=== PATIENT | female | born 1975 | race Caucasian/White ===

== ENCOUNTER → 2020-09-20 07:52 | Outpatient (CLI) | payer OTHER, SELFPAY ==
--- NOTE | ~2020-09-20 | MMUS_ITS ---
EXAMINATION: MM diagnostic naz BI w ivon, US breast BI complete HISTORY: Left breast pain. TECHNIQUE: Additional 3-D tomosynthesis images of the breasts were performed and synthetic 2-D images were generated. CAD analysis was submitted and interpreted. High resolution bilateral breast ultraso und was performed. COMPARISON: None BREAST PARENCHYMAL COMPOSITION: Breast composed of scattered areas of fibroglandular density. FINDINGS: MAMMOGRAPHIC FINDINGS: Breast composed of scattered areas of fibroglandular density. There are no discrete masses, sfdc architect ural distortion or suspicious calcifications in either breast. ULTRASOUND: Right breast ultrasound: At 12:00, 6 cm from the nipple, there is a 3 mm cyst. At 1:00, 6 cm from the nipple there is a 8 mm cyst. At 9:00 near the areola there is a 6 mm cyst. Left breast ultrasound: At 4:00, 7 cm from the nipple there is a 5 mm cyst. At 12:00 near the areola there is an 8 mm cyst. No suspicious masses in either breast to suggest malignancy. IMPRESSION: 1. No evidence for malignancy in either breast. 2. Routine yearly screening mammogram and regular clinical breast examination are recommended. BI-RADS Category 2: Benign finding(s). Reviewed, dictated and finalized at location A. NISTRATIVE VOLUNTEER IMPRESSION: 1. No evidence for malignancy in either breast. 2. Routine yearly screening mammogram and regular clinical breast examination a re recommended. BI-RADS Category 2: Benign finding(s).
== END ==
PROVIDERS: PCP Registered Nurse; Visit Provider Registered Nurse
DX: R59.0 Localized enlarged lymph nodes (principal); N64.4 Mastodynia
CPT/HCPCS: 76641; 77062; 77066; G0279

== ENCOUNTER 2021-02-15 01:03 | Emergency (ER) | payer OTHER, SELFPAY ==
[2021-02-15 01:06] VITALS: BP 145/94; PULSE 84; RESP 14; TEMP 36.3; O2SAT 98
--- NOTE | 2021-02-15 01:22 | ED.GENADULT ---
HPI - General Adult General Chief complaint: Ear Stated complaint: earache Time Seen by Provider: 02/15/21 01:13 Source: patient History of Present Illness HPI narrative: Patient is a 45 y/o female complaining of left ear pain starting 3:00 PM yesterday. She rates her pain as 7/10. She took Tylenol and Nyquil which did not help. She has no fever, chills, cough or sorethroat. Related Data Allergies Allergy/AdvReac Type Severity Reaction Status Date / Time erythromycin base Allergy Unknown Hives Verified 02/15/21 01:09 Review of Systems Constitutional: Constitutional: Denies chills, Denies fever(s), Denies headache(s) and Denies weakness Eyes: Eyes: Denies blurry vision ENT: Reports otalgia, Denies headache(s) and Denies neck pain Cardiovascular: Cardiovascular: Denies chest pain and Denies dyspnea Respiratory: Respiratory: Denies cough and Denies dyspnea Gastrointestinal: Gastrointestinal: Denies abdominal pain, Denies diarrhea, Denies nausea and Denies vomiting Genitourinary: Genitourinary: Denies hematuria and Denies dysuria Musculoskeletal: Musculoskeletal: Denies back pain and Denies neck pain Neurologic: Denies headache(s) and Denies weakness [facility] Family History Family History Mother Family history of chronic obstructive pulmonary disease Other Family history of Alzheimer's disease Social History Social History Smoking status: Current every day smoker Alcohol intake: current Gender identity (if verbalized by the patient): Female Exam Const: General: no acute distress and well developed HENMT: Head: normocephalic Ears: external ears normal and left TM abnormal (erythema) General nose exam: Normal external nose present Eyes: General: appearance normal, both eyes and all related structures Conjunctivae: conjunctivae normal Chest: Chest palpation & inspection: tenderness Resp: Effort & Inspection: normal respiratory effort Neuro: General: oriented to person, oriented to place, oriented to time and patient oriented x3 Extrem: General: normal to inspection, full ROM and no pedal edema Psych: Appearance: grossly normal Mental Status: mental status grossly normal Affect: normal affect Course Vital Signs Vital signs: Vital Signs Temperature 36.3 C L 02/15/21 01:06 Pulse Rate 84 02/15/21 01:06 Respiratory Rate 14 02/15/21 01:06 Blood Pressure 145/94 H 02/15/21 01:06 Pulse Oximetry 98 02/15/21 01:06 Temperature 36.2 C L 02/15/21 02:04 Pulse Rate 78 02/15/21 02:04 Respiratory Rate 16 02/15/21 02:04 Blood Pressure 138/82 02/15/21 02:04 Pulse Oximetry 98 02/15/21 02:04 Medical Decision Making Vital Signs Vital Signs: Vital Signs Temperature 36.3 C L 02/15/21 01:06 Pulse Rate 84 02/15/21 01:06 Respiratory Rate 14 02/15/21 01:06 Blood Pressure 145/94 H 02/15/21 01:06 Pulse Oximetry 98 02/15/21 01:06 Temperature 36.2 C L 02/15/21 02:04 Pulse Rate 78 02/15/21 02:04 Respiratory Rate 16 02/15/21 02:04 Blood Pressure 138/82 02/15/21 02:04 Pulse Oximetry 98 02/15/21 02:04 Discharge Plan Discharge Clinical Impression: Left otitis media Qualifiers: Otitis media type: unspecified Qualified Code(s): H66.92 - Otitis media, unspecified, left ear Patient Disposition: Home, Self-Care Condition: Stable Instructions: Antibiotic Form, Ear Infection (GEN) Prescriptions: New amoxicillin 500 mg tablet 500 mg PO TID 10 Days Qty: 30 RF: 0 Follow-up/Referrals: Adali,RAMIREZ Stone [Primary Care Provider] -
[2021-02-15 02:04] VITALS: BP 138/82; PULSE 78; RESP 16; TEMP 36.2; O2SAT 98
== END 2021-02-15 02:05 | disposition home or self-care (01) ==
PROVIDERS: Emergency Provider Emergency Medicine; PCP Registered Nurse
DX: H66.92 Otitis media, unspecified, left ear (principal); F17.200 Nicotine dependence, unspecified, uncomplicated
CPT/HCPCS: 99283

== ENCOUNTER 2022-08-01 11:12 | Emergency (ER) | payer OTHER, SELFPAY ==
--- NOTE | 2022-08-01 11:20 | ED.BACK ---
HPI - Back Pain/Injury General Chief Complaint: Urogenital-Female Stated Complaint: Back Pain Time Seen by Provider: 08/01/22 11:50 Source: patient Mode of arrival: ambulatory Limitations: no limitations History of Present Illness HPI Narrative: Ms. Torres is a 47-year-old female patient presenting to clinic today with complaints of low back pain since last night. She reports no known injury. She reports pain is across the entire low back but more so on the right side. She denies any radiation of pain into her legs or into her groin. No history of kidney stones. She denies any vaginal discharge or urinary symptoms. She denies any fever or chills. Does not feel as though she is having back spasms but pain is sharp and aching and comes in waves. Related Data Home Medications Medication Instructions Recorded Confirmed bupropion HCl 150 mg 24 hr tablet, 150 mg PO BID 04/01/21 10/05/21 extended release cyclobenzaprine 10 mg tablet 10 mg PO TID 04/01/21 10/05/21 pantoprazole 40 mg tablet,delayed 40 mg PO DAILY 04/01/21 10/05/21 release pregabalin 150 mg capsule 150 mg PO BID 04/01/21 10/05/21 tramadol 50 mg tablet 50 mg PO Q8H PRN 04/01/21 10/05/21 hydroxychloroquine 200 mg tablet 200 mg PO BID 08/01/22 08/01/22 lisinopril 10 mg tablet 10 mg DAILY 08/01/22 08/01/22 Allergies Allergy/AdvReac Type Severity Reaction Status Date / Time erythromycin base Allergy Unknown Hives Verified 08/01/22 11:52 Review of Systems Review of Systems: Pertinent positives per HPI. Patient denies any fever, chills, rash, headache, visual changes, dizziness, cough, runny nose, sore throat, shortness of breath, chest pain, palpitations, nausea, vomiting, diarrhea, constipation, abdominal pain, or any urinary issues. [facility] Past Medical History Medical History Abrasion of back Family History Family History Mother Family history of chronic obstructive pulmonary disease Other Family history of Alzheimer's disease Social History Social History Smoking packs per day: 0.5 Smoking cigarettes per day: 10.0 Smoking status: Current every day smoker Alcohol intake: current Gender identity (if verbalized by the patient): Female Comments At the time of my signature, I reviewed and agree with the nursing past medical, surgical, social, and family history. There is no relevant family history pertinent to the patient complaint. Exam Narrative: General: Well-developed, well nourished, in no apparent distress Head: Normocephalic, atraumatic. Cardio: Regular rate and rhythm, s1 and s2 normal, no murmur appreciated. Resp: Clear to auscultation bilaterally, no rhonchi, rales, wheezing or rubs. Musculoskeletal: No deformity, tender to palpation with light palpation across low back, grossly normal range of motion, patellar reflexes 2+, straight leg test negative, muscle strength strong and equal, peripheral pulse strong, no edema, no cyanosis, normal gait and station Course Course Emergency Course: Portions of this record may have been created with voice recognition software. Level of Care: Express Care Visit Vital Signs Vital signs: Vital Signs Temperature 36.4 C L 08/01/22 11:37 Pulse Rate 97 08/01/22 11:37 Respiratory Rate 18 08/01/22 11:37 Blood Pressure 96/50 L 08/01/22 11:37 Pulse Oximetry 100 08/01/22 11:37 Oxygen Delivery Room Air 08/01/22 11:37 Temperature 36.4 C L 08/01/22 11:37 Pulse Rate 97 08/01/22 11:37 Respiratory Rate 18 08/01/22 11:37 Blood Pressure 96/50 L 08/01/22 11:37 Pulse Oximetry 100 08/01/22 11:37 Oxygen Delivery Room Air 08/01/22 11:37 Vital signs reviewed Transfer Transfered to: [place] Transportation: Other ( private car) Transfer rationale: low back pain with
[2022-08-01 11:37] VITALS: BP 96/50; PULSE 97; RESP 18; TEMP 36.4; O2SAT 100
== END 2022-08-01 12:47 | disposition short-term general hospital (02) ==
PROVIDERS: Emergency Provider Nurse Practitioner Family; PCP Registered Nurse
DX: M54.50 Low back pain, unspecified (principal); R31.29 Other microscopic hematuria; F17.210 Nicotine dependence, cigarettes, uncomplicated
CPT/HCPCS: 81003; 99211; 99212; G0463

== ENCOUNTER 2022-08-01 13:04 | Observation (INO) | payer OTHER, SELFPAY ==
--- NOTE | ~2022-08-01 | XR_ITS ---
XR chest 2V DATE: 08/01/2022 17:55 INDICATION: Abnormal lung sounds. History of hypertension. Smoker. TECHNIQUE: PA and lateral views COMPARISON: None FINDINGS: Normal heart size. No hilar or mediastinal enlargement. No pulmonary infiltrate or consolid ation, pleural effusion or pulmonary vascular congestion or pneumothorax. Included skeletal structure s are unremarkable other than mild thoracic levoscoliosis. IMPRESSION: No active cardiopulmonary disease Reviewed, dictated and finalized at location A. RING INSPECTOR
--- NOTE | ~2022-08-01 | US_ITS ---
EXAMINATION: US renal BI DATE: 08/01/2022 23:52 INDICATION: Acute kidney injury. TECHNIQUE: Multiple ultrasound grayscale images of the kidneys were obtained. COMPARISON: CT abdomen and pelvis 08/01/2022 FINDINGS: The right kidney measures 11.6 x 6.0 x 6.0 cm. The left kidney measures 12.4 x 6.3 x 6.7 cm. The kidn eys demonstrate normal parenchymal echogenicity. There is no hydronephrosis. The bladder is normal. IMPRESSION: 1. Normal kidneys. No hydronephrosis. Reviewed, dictated and finalized at location A. [facility]
--- NOTE | ~2022-08-01 | CT_ITS ---
EXAMINATION: CT abdomen pelvis wo con DATE: 08/01/2022 17:47 INDICATION: Right flank pain. Leukocytosis. TECHNIQUE: Computed tomography (CT) of the abdomen and pelvis was performed without intravenous contr ast. Automated exposure control and iterative reconstruction technique were employed. Exam dose: 137 3.66 mGy-cm total exam DLP. COMPARISON: None FINDINGS: The lung bases are clear of infiltrate or consolidation. Normal heart size. No pericardial or pleural effusion. The liver, gallbladder, bile ducts, spleen are unremarkable. No pancreatic mass lesion or calculus or ductal dilatation. There is fat stranding adjacent to the upper pole the left kidney and to a lesser extent adjacent to the remainder of each kidney. There is stranding around the right ureter. The findings suggest pyelon ephritis.. No renal mass lesion or urinary tract calculus or hydroureteronephrosis. The urinary bladder, uterus and adnexal areas are unremarkable. Normal caliber of the abdominal aorta. No intraperitoneal or retroperitoneal or pelvic mass lesion or adenopathy or ascites. Normal appendix. No bowel obstruction or bowel wall thickening, pneumatosis or intraperitoneal free a ir. Normal morphology of the adrenal glands. Small fat-containing umbilical hernia. No suspicious osteolytic or osteoblastic lesions are noted. IMPRESSION: Stranding around the kidneys and right ureter suggesting pyelonephritis Normal appendix Reviewed, dictated and finalized at Location A. Reviewed, dictated and finalized at location A. R PLANT OPERATOR IMPRESSION: Stranding around the kidneys and right ureter suggesting pyeloneph ritis Normal appendix
[2022-08-01 13:06] VITALS: BP 129/79; PULSE 100; RESP 18; TEMP 36.3; O2SAT 100
[2022-08-01 13:28] LABS: Basophils Absolute Auto 0.1 K/mm3 (0.0-0.1); Basophils Percent Auto 0.5 % (0.2-1.2); Eosinophils Absolute Auto 0.1 K/mm3 (0-0.3); Eosinophils Percent Auto 0.6 % (0-4.4); Hemoglobin 14.4 g/dL (12.0-15.0); Immature Granulocyte Absolute 0.14 K/mm3 (0.00-0.031); Immature Granulocyte Percent A 0.7 % (0-0.5); Lymphocytes Absolute Auto 2.08 K/mm3 (0.9-3.2); Lymphocytes Percent Auto 10.3 % (18.3-44.2); Mean Corpuscular HGB Conc 34.3 g/dl (32-36); Mean Corpuscular Hemoglobin 31.6 pg (26-34); Mean Corpuscular Volume 92.3 fl (80-100); Mean Platelet Volume 12.1 fl (7.4-10.4); Monocytes Absolute Auto 2.3 K/mm3 (0.1-0.6); Monocytes Percent Auto 11.5 % (2.6-8.5); Neutrophils Absolute Auto 15.3 K/mm3 (1.3-6.7); Neutrophils Percent Auto 76.4 % (45.5-73.1); Platelet Count Result 219 k/mm3 (150-375); Red Blood Count 4.55 M/mm3 (4.2-5.4); Red Cell Distribution Width 12.4 % (11.5-14.5); White Blood Count 20.1 K/mm3 (4.5-10.0)
[2022-08-01 13:39] LABS: Alanine Aminotransferase 33 U/L (6-35); Albumin Level 4.5 g/dL (3.5-5.1); Alkaline Phosphatase 95 U/L (38-126); Anion Gap 9 mmol/L (8-16); Aspartate Amino Transferase 31 U/L (14-36); Bilirubin,Total 0.6 mg/dL (0.2-1.3); Blood Urea Nitrogen 18 mg/dL (7-17); Calcium 9.3 mg/dL (8.4-10.2); Carbon Dioxide 25 mmol/L (22-30); Chloride 99 mmol/L (98-107); Estimated CRCL calculation 39 ml/min; Estimated Glomerular Filt Rate 24; Glucose 99 mg/dL (65-110); Potassium 4.6 mmol/L (3.4-5.0); Sodium 133 mmol/L (137-145)
[2022-08-01 14:29] LABS: Appearance Urine Slightly Cloudy (Clear); Bilirubin Urine Negative (Negative); Blood Urine Negative (Negative); Color Urine Light Yellow (Yellow); Glucose Urine UA Negative (Negative); Ketones Urine Negative (Negative); Leukocyte Esterase Ur Negative LEU/UL (Negative); Nitrate Urine Negative (Negative); Protein Urine Negative (Negative); Specific Grav Ur <= 1.005 (1.001-1.035); Urobilinogen Urine 0.2 mg/dL (<2.0); pH Urine 5.5 (5.0-9.0)
[2022-08-01 14:37] LABS: Bacteria Urine 2+ /hpf; Mucus Urine Rare /lpf; RBC Urine 0-2 /hpf (0-2); Squamous Epithelial Cell Urine Few /hpf (Few); WBC Urine 0-3 /hpf
[2022-08-01 14:41] LABS: Add Urine Microscopic? YES
[2022-08-01] MEDS: SODIUM CHLORIDE 0.9% IV 1,000 ML 999 ML IV CONT ×2 (17:21→19:43)
[2022-08-01] MEDS: ONDANSETRON INJ 4 MG/2 ML VIAL IV PUSH (17:23)
--- NOTE | 2022-08-01 17:33 | ED.BACK ---
HPI - Back Pain/Injury General Chief Complaint: Back Pain/Injury <Dhara Vu PA-C - Last Filed: 08/02/22 02:09> Stated Complaint: r/o kidney stone <BENNIE Lao Last Filed: 08/02/22 02:09> Time Seen by Provider: 08/01/22 17:01 <BENNIE Lao Last Filed: 08/02/22 02:09> Source: patient <BENNIE Lao Last Filed: 08/02/22 02:09> Mode of arrival: ambulatory <BENNIE Lao Last Filed: 08/02/22 02:09> Limitations: no limitations <BENNIE Lao Last Filed: 08/02/22 02:09> History of Present Illness HPI Narrative: Patient is a 47-year-old female who presents the ED with report of right lower back/right flank pain. Patient reports she developed pain in her lower back, bilateral flank regions, radiating around to lower abdomen last night around 7:15 PM. She took Tylenol last night and this morning with minimal relief. Pain does seem to be worse on right side. Worse with laying flat or walking around. She has had some nausea and decreased appetite, but denies fever, vomiting, diarrhea, constipation, rectal bleeding, dysuria, hematuria, cough, cold symptoms. Patient has never had pain like this before. <BENNIE Lao Last Filed: 08/02/22 02:09> Related Data Home Medications: Home Medications Medication Instructions Recorded Confirmed bupropion HCl 150 mg 24 hr tablet, 150 mg PO BID 04/01/21 08/01/22 extended release cyclobenzaprine 10 mg tablet 10 mg PO TID PRN Spasms 04/01/21 08/01/22 pantoprazole 40 mg tablet,delayed 40 mg PO QAM 04/01/21 08/01/22 release pregabalin 150 mg capsule 150 mg PO BID 04/01/21 08/01/22 tramadol 50 mg tablet 50 mg PO Q6-8H PRN pain 04/01/21 08/01/22 hydroxychloroquine 200 mg tablet 200 mg PO BID 08/01/22 08/01/22 meloxicam 15 mg tablet 15 mg PO QHS 08/01/22 08/01/22 <Dhara Vu PA-C - Last Filed: 08/02/22 02:09> Allergies/Adverse Reactions: Allergies Allergy/AdvReac Type Severity Reaction Status Date / Time erythromycin base Allergy Unknown Hives Verified 08/01/22 11:52 <Dhara Vu PA-C - Last Filed: 08/02/22 02:09> Review of Systems Review of Systems: CONSTITUTIONAL: Denies fever, chills, or sweats. ENT: Denies rhinorrhea, congestion, sore throat. CARDIOVASCULAR: Denies chest pain. RESPIRATORY: Denies cough or dyspnea. GASTROINTESTINAL: Reports lower ABD pain, nausea. Denies constipation, rectal bleeding, vomiting, or diarrhea. GENITOURINARY: Denies dysuria or hematuria. MUSCULOSKELETAL: Reports bilateral lower back/flank pain. <Dhara Vu PA-C - Last Filed: 08/02/22 02:09> All systems reviewed & are unremarkable except as noted in HPI and below <Dhara Vu PA-C - Last Filed: 08/02/22 02:09> [facility] Past Medical History Medical History: Medical History Chronic back pain Chronic GERD Hypertension Obstructive sleep apnea on CPAP Rheumatoid arthritis <Dhara Vu PA-C - Last Filed: 08/02/22 02:09> Surgical History Surgical History: Surgical History No history of previous surgery <Dhara Vu PA-C - Last Filed: 08/02/22 02:09> Family History Family History: Family History Mother Family history of chronic obstructive pulmonary disease Other Family history of Alzheimer's disease <Dhara Vu PA-C - Last Filed: 08/02/22 02:09> Social History Social History: Social History Social History: Surrogate medical decision maker: Dana Juarez, spouse. Code status: Full code. Smoking packs per day: 1 Smoking cigarettes per day: 20.0 Smoking status: Current every day smoker Alcohol intake: rhett
[2022-08-01 18:24] LABS: Lactic Acid Reflex 0.8 mmol/L (0.7-2.0)
--- NOTE | 2022-08-01 19:00 | PM.IMHP ---
H&P: HPI History of Present Illness Date/Time: 08/01/22 19:00 Chief Complaint: Back and side pain. Narrative: This is a pleasant 47-year-old female with rheumatoid arthritis, GERD, sleep apnea, recent diagnosis of hypertension, and chronic low back pain who presented to the emergency department for evaluation of right low back and flank pain. Last evening she developed a throbbing and occasionally sharp pain in her lower back, more so on the right side, radiating into the right flank. She took some Tylenol last night and again this morning without a whole lot of relief. The pain is not all similar to that which she experiences with her chronic low back pain and she has not noticed any significant aggravating or alleviating factors. Additionally she also reports chills and a bit of nausea. She was afebrile on arrival to emergency department with a blood pressure of 96/50 which has improved with IV fluids. Workup was significant for white blood cell count of 20.1, sodium 133, BUN 18, and a creatinine 2.20. Urinalysis was negative for nitrate, leukocyte esterase, and increased numbers of white blood cells but did show 2+ bacteria. CT of the abdomen and pelvis showed stranding around the kidneys and right ureter suggesting pyelonephritis and she is being admitted in this setting for IV antibiotics. She has no history of urinary tract infections and she has not had any urinary symptoms, specifically denying urinary hesitancy, urgency, incontinence, and dysuria. Regarding her renal function, she had a normal creatinine according to her [facility] my chart within the last month or so. She has no known history of kidney disease but she does report being started on lisinopril 10 milligrams daily several weeks ago for high blood pressure. She has not noticed a decrease in urine output. Review of Systems Review of Systems: Twelve systems were reviewed. No syncope or near syncope. She has had chills but no documented fever. No cold or flu symptoms. She has had some nausea but no vomiting. No chest pain or shortness of breath. Last menstrual period was approximately 3 weeks ago. Except as documented, all other systems were reviewed and are negative. [facility] Past Medical History Medical History (Updated 08/01/22 @ 22:50 by Michelle Monique PA-C) Chronic back pain Chronic GERD Hypertension Obstructive sleep apnea on CPAP Rheumatoid arthritis Surgical History Surgical History (Updated 08/01/22 @ 22:51 by Michelle Monique PA-C) No history of previous surgery Family History Family History Mother Family history of chronic obstructive pulmonary disease Other Family history of Alzheimer's disease Social History Social History (Updated 08/01/22 @ 22:51 by Michelle Monique PA-C) Social History: Surrogate medical decision maker: Dana Newaleewilliam, spouse. Code status: Full code. Smoking packs per day: 1 Smoking cigarettes per day: 20.0 Smoking status: Current every day smoker Alcohol intake: current Drinks per week: 3 Substance use: never Lack of Transportation: No Lack of Food: Never True Current Housing: I Have Housing Concerned About Future Housing: No Difficulty Paying Gas/Electric Bills: No Difficulty Paying for Meds: No Currently Unemployed: No Education: Associate Degree Difficulty w/ Childcare or Family Care: No Additional living arrangements comments: The patient lives with her and their fur children in [place]. 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 Spiritual care concerns: No Meds Home Medications and Allergies Home Medications Medication Instructions Recorded Confirmed Type bupropion HCl 150 mg 24 hr tablet, 150 mg PO BID 04/01/21 08/01/22 History extended release cyclobenzaprine 10 mg tablet 10 mg PO TID PRN Spasms 04/01/21 08/01/22 History pantoprazole 40 m
[2022-08-01 21:15] VITALS: BP 110/58; PULSE 68; RESP 18; O2SAT 99
--- NOTE | 2022-08-01 21:26 | ADMGEN ---
This patient, Mere Torres, was admitted to Medical Room 349-01. Patient/family oriented to hospital policies and general routines including ID bracelet, bed and alarms, visiting hours, pain management, procedures, bathroom and other care routines, personal items, smoking policy, room service/diet, and visiting hours. Information on how to activate the Rapid Response Team has been discussed. Patient/Family are encouraged to report perceived risks to care and to ask questions if they do not understand what they are told or what they should do.
[2022-08-01 21:57] VITALS: BP 100/50; PULSE 89; RESP 18; TEMP 36.5; O2SAT 97
[2022-08-01 21:59] VITALS: BMI 37.5
[2022-08-01] MEDS: SODIUM CHLORIDE 0.9% IV 1,000 ML 100 ML IV CONT (23:34)
[2022-08-01] MEDS: traMADol HCL (*CRX) 50 MG TABLET PO (23:39)
[2022-08-02 05:51] VITALS: BP 119/66; PULSE 70; RESP 16; TEMP 36.4; O2SAT 98
[2022-08-02] MEDS: traMADol HCL (*CRX) 50 MG TABLET PO ×2 (05:53→17:28)
[2022-08-02 05:58] LABS: Hemoglobin 13.1 g/dL (12.0-15.0); Mean Corpuscular HGB Conc 32.8 g/dl (32-36); Mean Corpuscular Hemoglobin 32.1 pg (26-34); Mean Platelet Volume 12.1 fl (7.4-10.4); Platelet Count Result 173 k/mm3 (150-375); Red Blood Count 4.08 M/mm3 (4.2-5.4); Red Cell Distribution Width 12.6 % (11.5-14.5); White Blood Count 11.1 K/mm3 (4.5-10.0)
[2022-08-02 06:21] LABS: Anion Gap 7 mmol/L (8-16); Blood Urea Nitrogen 21 mg/dL (7-17); Calcium 7.9 mg/dL (8.4-10.2); Carbon Dioxide 24 mmol/L (22-30); Chloride 106 mmol/L (98-107); Estimated CRCL calculation 37 ml/min; Estimated Glomerular Filt Rate 23; Glucose 100 mg/dL (65-110); Potassium 4.4 mmol/L (3.4-5.0); Sodium 137 mmol/L (137-145)
[2022-08-02] MEDS: buPROPion HCL XL (24 HR) 150 MG TABCR PO ×2 (08:51→17:28)
[2022-08-02] MEDS: PREGABALIN (*CRX) 75 MG CAPSULE 150 MG PO ×2 (08:51→17:28)
[2022-08-02] MEDS: PANTOPRAZOLE 40 MG TABLET PO (08:51)
[2022-08-02] MEDS: SODIUM CHLORIDE 0.9% IV 1,000 ML 100 ML IV CONT ×2 (08:52→17:34)
--- NOTE | 2022-08-02 09:33 | PM.IMPN ---
Progress Note: A&P Assessment and Plan (1) Acute kidney injury: Code(s): N17.9 - Acute kidney failure, unspecified Status: Acute Assessment and Plan: Renal function was normal about 1 month ago. Creatinine 2.2 on admission here. She did recently start lisinopril. Repeat creatinine about the same today. Urinalysis is bland. No blood or protein in the urine. Renal ultrasound showing no acute findings. Since no improvement, will proceed with further evaluation of her renal failure. (2) Pyelonephritis: Code(s): N12 - Tubulo-interstitial nephritis, not specified as acute or chronic Status: Acute Assessment and Plan: UA is normal. Urine and blood cultures have been collected. CT of the abdomen and pelvis showing findings consistent with pyelonephritis. Clinically she has pain in this area as well which was her presenting symptom. WBC was 20K but better today. UA clear related to immunocompromised? Consider hematologic spread to the kidney. Continue Rocephin. Follow up on culture results. (3) Hypertension: Code(s): I10 - Essential (primary) hypertension Status: Acute Assessment and Plan: Patient's blood pressure was soft on admission. Lisinopril has been held. Continue to monitor. (4) Rheumatoid arthritis: Code(s): M06.9 - Rheumatoid arthritis, unspecified Status: Acute Assessment and Plan: Patient takes hydroxychloroquine at home for her RA. RA symptoms are well controlled with this medication. Resume when able. (5) Obstructive sleep apnea on CPAP: Code(s): G47.33 - Obstructive sleep apnea (adult) (pediatric); Z99.89 - Dependence on other enabling machines and devices Status: Acute Assessment and Plan: Patient is noncompliant with her CPAP at home. Encouraged compliance. (6) Tobacco abuse: Code(s): Z72.0 - Tobacco use Status: Acute Assessment and Plan: patient Education will be provided about the benefits of smoking cessation. Subjective Date/time seen: 08/02/22 09:33 Interval history: 47yo female with hypertension, rheumatoid arthritis and RITA here for back pain found to have acute kidney injury and pyelonephritis. Patient complains of right-sided back pain this morning. No chest pain, shortness of breath or cough. No dysuria or hematuria. No strong odor to the urine. She is on hydroxychloroquine for her RA. RAis well controlled and there has been no recent flares. Exam Narrative: AF 97.9 119/66 70 16 98% ra Gen - NARD Chest - CTA bilaterally, nml RR CV - RRR S1/S2 Abd - Soft, NT/ND, Positive BS Back - right CVA tenderness Ext - No pedal edema Psych - Nml mood and affect Skin - Warm and dry Objective Data Vital Signs Vital Signs: Vital Signs - 24 hr 08/01/22 13:06 08/01/22 21:15 08/01/22 21:57 Temperature 97.3 F L 97.7 F Pulse Rate 100 68 89 Respiratory Rate 18 18 18 Blood Pressure 129/79 110/58 L 100/50 L Pulse Oximetry 100 99 97 Oxygen Delivery Room Air 08/02/22 05:51 08/02/22 08:00 Temperature 97.6 F Pulse Rate 70 Respiratory Rate 16 Blood Pressure 119/66 Pulse Oximetry 98 Oxygen Delivery Room Air Intake/Output Intake/Output: Intake & Output 07/30/22 07/31/22 08/01/22 08/02/22 23:59 23:59 23:59 23:59 Intake Total 2250 1250 Output Total 900 Balance 2250 350 Meds/Results Medications: Active Medications Generic Name Dose Route Start Last Admin Trade Name Freq PRN Reason Stop Dose Admin Acetaminophen 650 mg 08/01/22 22:57 Acetaminophen 325 Mg Tablet PO Q6H PRN Mild Pain (1-3) or Fever Bupropion HCl 150 mg 08/02/22 09:00 08/02/22 08:51 Bupropion Hcl Xl (24 Hr) 150 Mg Tabcr PO 150 mg BID CARLYN Administration Cyclobenzaprine HCl 10 mg 08/01/22 22:58 Cyclobenzaprine Hcl 10 Mg Tablet PO TID PRN Spasms Ceftriaxone Sodium/Dextrose 1 gm in 50 mls @ 100 m
[2022-08-02 10:34] LABS: Complement C3 118 mg/dL (88-165)
[2022-08-02 10:52] LABS: Creatine Kinase 44 U/L (30-135)
[2022-08-02 14:00] VITALS: BP 132/78; PULSE 74; RESP 18; TEMP 36.7; O2SAT 100
[2022-08-02 14:13] LABS: Eosinophil Urine None Seen % (None Seen)
[2022-08-02 21:21] VITALS: BP 126/78; PULSE 76; RESP 18; TEMP 36.7; O2SAT 100
[2022-08-03 05:48] LABS: Albumin Level 3.4 g/dL (3.5-5.1); Anion Gap 6 mmol/L (8-16); Blood Urea Nitrogen 15 mg/dL (7-17); Calcium 8.8 mg/dL (8.4-10.2); Carbon Dioxide 27 mmol/L (22-30); Chloride 108 mmol/L (98-107); Estimated CRCL calculation 56 ml/min; Estimated Glomerular Filt Rate 38; Glucose 98 mg/dL (65-110); Phosphorus 4.2 mg/dL (2.5-4.5); Sodium 141 mmol/L (137-145)
[2022-08-03 05:54] LABS: Basophils Absolute Auto 0.1 K/mm3 (0.0-0.1); Basophils Percent Auto 0.7 % (0.2-1.2); Eosinophils Absolute Auto 0.2 K/mm3 (0-0.3); Eosinophils Percent Auto 1.8 % (0-4.4); Hematocrit 37.1 % (37.0-47.0); Hemoglobin 12.5 g/dL (12.0-15.0); Immature Granulocyte Absolute 0.03 K/mm3 (0.00-0.031); Immature Granulocyte Percent A 0.3 % (0-0.5); Lymphocytes Absolute Auto 2.48 K/mm3 (0.9-3.2); Lymphocytes Percent Auto 23.8 % (18.3-44.2); Mean Corpuscular HGB Conc 33.7 g/dl (32-36); Mean Corpuscular Hemoglobin 31.8 pg (26-34); Mean Corpuscular Volume 94.4 fl (80-100); Mean Platelet Volume 12.5 fl (7.4-10.4); Monocytes Absolute Auto 1.2 K/mm3 (0.1-0.6); Monocytes Percent Auto 11.4 % (2.6-8.5); Neutrophils Absolute Auto 6.4 K/mm3 (1.3-6.7); Platelet Count Result 189 k/mm3 (150-375); Red Blood Count 3.93 M/mm3 (4.2-5.4); Red Cell Distribution Width 12.5 % (11.5-14.5); White Blood Count 10.4 K/mm3 (4.5-10.0)
[2022-08-03] MEDS: SODIUM CHLORIDE 0.9% IV 1,000 ML 100 ML IV CONT (05:56)
[2022-08-03 06:00] VITALS: BP 116/76; PULSE 74; RESP 18; TEMP 37.2; O2SAT 97
[2022-08-03] MEDS: buPROPion HCL XL (24 HR) 150 MG TABCR PO (09:16)
[2022-08-03] MEDS: PANTOPRAZOLE 40 MG TABLET PO (09:16)
[2022-08-03] MEDS: PREGABALIN (*CRX) 75 MG CAPSULE 150 MG PO (09:16)
--- NOTE | 2022-08-03 10:22 | PM.DS ---
DS: Admitting Diagnosis Discharge Date 08/03/22 Admitting Diagnosis Back pain DS: Discharge Diagnosis Discharge Diagnosis (1) Acute kidney injury: Code(s): N17.9 - Acute kidney failure, unspecified Status: Acute (2) Pyelonephritis: Code(s): N12 - Tubulo-interstitial nephritis, not specified as acute or chronic Status: Acute (3) Hypertension: Code(s): I10 - Essential (primary) hypertension Status: Acute (4) Rheumatoid arthritis: Code(s): M06.9 - Rheumatoid arthritis, unspecified Status: Acute (5) Obstructive sleep apnea on CPAP: Code(s): G47.33 - Obstructive sleep apnea (adult) (pediatric); Z99.89 - Dependence on other enabling machines and devices Status: Acute (6) Tobacco abuse: Code(s): Z72.0 - Tobacco use Status: Acute DS: Summary Hospital Course Reason for hospitalization: 47yo female with hypertension, rheumatoid arthritis and RITA here for back pain found to have acute kidney injury and pyelonephritis. Please see H&P for details Hospital Course: Patient presents with back pain. CT of the abdomen and pelvis showing stranding around both kidneys and right ureter consistent with pyelonephritis.?Clinically she has pain in this area as well which was her presenting symptom.? WBC was 20K. Urine and blood cultures have been collected.?Rocephin started. Renal function was normal about 1 month ago.? Creatinine 2.2 on admission here.? She did recently start lisinopril which was stopped. Urinalysis was bland.? No blood or protein in the urine.? Renal ultrasound showing no acute findings.?She was started on IV fluids. Repeat creatinine improved to 1.5.?Other testing was performed to assess her IESHA but these results are pending. WBC dropped to 10K. UCx negative and BCx NGTD. Her clinical symptoms almost completely resolved. Patient's blood pressure was normal and even soft at times. No plans on resuming Lisinopril at discharge.?Patient takes hydroxychloroquine at home for her RA.? RA symptoms are well controlled with this medication.?Patient is noncompliant with her CPAP at home.?It ws continued here and compliance was encouraged. Patient was educated about the benefits of smoking cessation. She overall did well. She was able to be discharged home on 08/03/22 Status at Discharge Cognitive/behavioral status at discharge: Stable Time Spent with Patient Time attestation: Total time spent providing and/or coordinating discharge services: 35 minutes Time spent: Greater than 30 minutes Exam Narrative: AF 98.9 116/76 74 18 97% ra Gen - NARD Chest - CTA bilaterally, nml RR CV - RRR S1/S2 Abd - Soft, NT/ND, Positive BS Back - minimal right CVA tenderness; no further left CVA tenderness Ext - No pedal edema Psych - Nml mood and affect Skin - Warm and dry DS: Data Data Completed and Pending Labs on day of discharge: Labs from last 24 hours 08/03/22 08/03/22 08/02/22 05:15 05:15 11:43 WBC 10.4 H RBC 3.93 L Hgb 12.5 Hct 37.1 MCV 94.4 MCH 31.8 MCHC 33.7 RDW 12.5 Plt Count 189 MPV 12.5 H Immature Gran % (Auto) 0.3 Neut % (Auto) 62.0 Lymph % (Auto) 23.8 Eddy % (Auto) 11.4 H Eos % (Auto) 1.8 Baso % (Auto) 0.7 Lymph # (Auto) 2.48 Eddy # (Auto) 1.2 H Eos # (Auto) 0.2 Baso # (Auto) 0.1 Abs Immat Gran (auto) 0.03 Absolute Neuts (auto) 6.4 Absolute Nucleated RBC 0.0 Nucleated RBC % 0.0 Sodium 141 Potassium 4.0 Chloride 108 H Carbon Dioxide 27 Anion Gap 6 L BUN 15 D Creatinine 1.50 H Estim Creat Clear Calc 56 Estimated GFR 38 L Glucose 98 Calcium 8.8 Phosphorus 4.2 Total Creatine Kinase Albumin 3.4 L Urine Eosinophils None seen Complement C3 Complement C4 08/02/22 08/02/22 10:04 10:04 WBC RBC Hgb Hct MCV MCH MCHC RDW Plt Count MPV Immature Gran % (Auto) Neut % (Auto)
[2022-08-06 10:32] LABS: Albumin 3.1 g/dL (3.8-4.8); Alpha 1 Globulin 0.4 g/dL (0.2-0.3); Alpha 2 Globulin 0.8 g/dL (0.5-0.9); Beta 1 Globulin 0.4 g/dL (0.4-0.6); Gamma Globulin 0.6 g/dL (0.8-1.7); Protein, Total 5.5 g/dL (6.1-8.1)
[2022-08-07 16:47] LABS: Anti Streptolysin O Screen <50 IU/mL (<200)
[2022-08-08 20:25] LABS: ANCA Screen Negative (Negative)
--- NOTE | 2022-08-09 08:55 | PC.NURSE ---
ANCA, MICHELLE are both negative. ASO is <50; WNL. DNA DS is 1. Blood cx are negative. SPEP- No M spike detected. IT also says- Suggestive of Acute inflammation pattern with elevation of acute phase protein. Dr. Reyes aware of findings.
== END 2022-08-03 11:45 | disposition home or self-care (01) ==
LOC: ANHED 18:58 → ANH3MED 22:55
PROVIDERS: Physician Assistant; Admitting Provider Chiropractor; Emergency Provider Emergency Medicine; PCP Registered Nurse; Visit Provider Internal Medicine
DX: N10 Acute pyelonephritis (principal); N17.9 Acute kidney failure, unspecified; I10 Essential (primary) hypertension; K21.9 Gastro-esophageal reflux disease without esophagitis; M06.9 Rheumatoid arthritis, unspecified; M54.9 Dorsalgia, unspecified; G89.29 Other chronic pain; G47.33 Obstructive sleep apnea (adult) (pediatric); F17.210 Nicotine dependence, cigarettes, uncomplicated
CPT/HCPCS: 36415; 71046; 74176; 76775; 80048; 80053; 80069; 81001; 81003; 81025; 82550; 83605; 83735; 84155; 84165; 85025; 85027; 85999; 86036; 86038; 86060; 86160; 86225; 87040; 87086; 96360; 96361; 96365; 96367; 96375; 99285; A9270; G0378; J0131; J0696; J2405; J7030

== ENCOUNTER → 2023-03-31 09:49 | Outpatient (CLI) | payer OTHER, SELFPAY ==
--- NOTE | ~2023-03-31 | MR_ITS ---
EXAMINATION: MR knee RT wo con DATE: 03/31/2023 10:37 INDICATION: generalized rt knee pain/swelling s/p pt fall x2wks, no ca TECHNIQUE: Magnetic resonance imaging (MRI) of the right knee was performed without intravenous contr ast. Sequences included axial PD-weighted FS FSE, coronal PD-weighted FSE and PD-weighted FS FSE, sag ittal PD-weighted FSE, and sagittal T2-weighted FS FSE. COMPARISON: None. FINDINGS: Medial compartment: Meniscus intact. Moderate diffuse cartilage thinning. Lateral compartment: Meniscus intact. Mild diffuse cartilage thinning. Patellofemoral compartment: Cartilage and retinacula intact. Ligaments and tendons: Slip of intermediate signal undermining the origin of the ACL, which otherwise appears to be intact. Mild chronic thickening of the MCL. The PCL, MCL, and LCL are intact. Remaining flexor and extensor t endons are intact. Fluid: Small volume joint fluid. Osseous/other: No suspicious focal or diffuse marrow signal. IMPRESSION: Low-grade, possibly chronic partial ACL tear. Chronic-appearing low-grade MCL tear. Reviewed, dictated and finalized at location K. IMPRESSION: Low-grade, possibly chronic partial ACL tear. Chronic-appearing low-grade MCL t ear.
== END ==
PROVIDERS: PCP Registered Nurse; Visit Provider Registered Nurse
DX: M25.561 Pain in right knee (principal)
CPT/HCPCS: 73721

== ENCOUNTER 2023-06-03 16:45 | Emergency (ER) | payer OTHER, SELFPAY ==
[2023-06-03 16:55] VITALS: BP 120/73; PULSE 90; RESP 20; TEMP 37.4; O2SAT 99
--- NOTE | 2023-06-03 17:30 | ED.FEMALEGU ---
HPI - Female Genitourinary General Chief complaint: Urogenital-Female Stated complaint: urinary issue Time Seen by Provider: 06/03/23 17:30 Source: patient and RN notes reviewed Mode of arrival: ambulatory Limitations: no limitations History of Present Illness HPI Narrative: 48-year-old female presented for complaint of urinary frequency, urgency, burning with urination over the past 3 days. At the onset she took fluconazole and azo for symptoms. Denies abdominal pain, flank pain, nausea, vomiting, hematuria, fevers or chills. Denies concern for STD or . Related Data Home Medications Medication Instructions Recorded Confirmed bupropion HCl 150 mg 24 hr tablet, 150 mg PO BID 04/01/21 06/03/23 extended release pantoprazole 40 mg tablet,delayed 40 mg PO QAM 04/01/21 06/03/23 release pregabalin 150 mg capsule 150 mg PO BID 04/01/21 06/03/23 hydroxychloroquine 200 mg tablet 200 mg PO BID 08/01/22 06/03/23 meloxicam 15 mg tablet 15 mg PO QHS 08/01/22 06/03/23 famotidine 20 mg tablet 20 mg PO DAILY 06/03/23 06/03/23 Allergies Allergy/AdvReac Type Severity Reaction Status Date / Time erythromycin base Allergy Unknown Hives Verified 06/03/23 17:01 Review of Systems Review of Systems: CONSTITUTIONAL: Denies body aches, fever, chills, or sweats. CARDIOVASCULAR: Denies chest pain, palpitations, or edema. RESPIRATORY: Denies cough or dyspnea. GASTROINTESTINAL: Denies abdominal pain, nausea, vomiting, or diarrhea. GENITOURINARY: Reports dysuria, frequency, urgency, hematuria, denies flank pain SKIN: Denies rash, itching, or wounds. MUSCULOSKELETAL: Denies back pain or myalgia. [facility] Past Medical History Medical History Chronic back pain Chronic GERD Hypertension Obstructive sleep apnea on CPAP Rheumatoid arthritis Surgical History Surgical History No history of previous surgery Family History Family History Mother Family history of chronic obstructive pulmonary disease Other Family history of Alzheimer's disease Social History Social History Social History: Surrogate medical decision maker: Dana Juarez, spouse. Code status: Full code. Smoking packs per day: 1 Smoking cigarettes per day: 20.0 Smoking status: Current every day smoker Alcohol intake: current Drinks per week: 3 Substance use: never Lack of Transportation: No Lack of Food: Never True Current Housing: I Have Housing Concerned About Future Housing: No Difficulty Paying Gas/Electric Bills: No Difficulty Paying for Meds: No Currently Unemployed: No Education: Associate Degree Difficulty w/ Childcare or Family Care: No Additional living arrangements comments: The patient lives with her and their fur children in [place]. 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 Spiritual care concerns: No Comments At time of signature, I have reviewed and agree with nursing past medical, surgical, social and family history unless otherwise noted. Please see nursing chart for further information. There is no relevant family history pertinent to the presenting complaint Exam Narrative: GENERAL: Well-appearing and in no acute distress. HEAD: Normocephalic EYES: EOMI. . ENT: Mucous membranes pink and moist. NECK: Normal AROM. Supple. CHEST: No respiratory distress. Clear to auscultation. HEART: Regular rate and rhythm. ABDOMEN: Soft, nontender, nondistended, normal active bowel sounds. No CVA tenderness MUSCULOSKELETAL: No bony tenderness. SKIN: Warm, dry, no rash. NEURO: No focal deficits. Alert and oriented x3. Gait steady. PSYCH: Normal affect. No signs of depression or anxiety. Course Course Emerg
== END 2023-06-03 17:48 | disposition home or self-care (01) ==
PROVIDERS: Emergency Provider Nurse Practitioner Family; PCP Registered Nurse
DX: N39.0 Urinary tract infection, site not specified (principal); I10 Essential (primary) hypertension; F17.210 Nicotine dependence, cigarettes, uncomplicated; Z79.899 Other long term (current) drug therapy; Z79.1 Long term (current) use of non-steroidal anti-inflammatories (NSAID)
CPT/HCPCS: 81003; 87086; 87088; 99213; G0463

== ENCOUNTER → 2023-09-28 07:33 | Outpatient (CLI) | payer OTHER, SELFPAY ==
--- NOTE | ~2023-09-28 | MR_ITS ---
EXAMINATION: MR cervical spine wo con DATE: 09/28/2023 08:05 INDICATION: Cervical radiculopathy TECHNIQUE: Magnetic resonance imaging (MRI) of the cervical spine was performed without intravenous c ontrast. Sequences included sagittal T2-weighted FSE, sagittal T2-weighted FS FSE, sagittal T1-weight ed FSE, axial MERGE and axial T2-weighted FSE. COMPARISON: None FINDINGS: Mild upper thoracic levocurvature. Straightening of the normal cervical lordosis. No spondylolisthesi s or facet subluxation. Vertebral body heights are normal. Bone marrow signal intensity is normal. Mild disc height loss and annular fissure at C5-C6. Cord signal intensity is normal. Cervical soft ti ssues are unremarkable. The following disc levels are specifically discussed: C2-C3: The disc does not extend beyond the endplate margin. There is mild left uncovertebral joint os teoarthritis. There is mild right facet joint osteoarthritis. There is no neural foraminal stenosis. There is no central canal stenosis. C3-C4: Disc is minimally bulging. There is mild left uncovertebral joint osteoarthritis. There is mil d bilateral facet joint osteoarthritis. There is mild left neural foraminal stenosis. There is no juan jose tral canal stenosis. C4-C5: The disc does not extend beyond the endplate margin. There is mild left uncovertebral joint os teoarthritis. There is mild left facet joint osteoarthritis. There is mild left neural foraminal sten osis. There is no central canal stenosis. C5-C6: Disc is bulging with annular fissure. There is mild bilateral uncovertebral joint osteoarthrit is. There is mild right and moderate left facet joint osteoarthritis. There is mild right and mild to moderate left neural foraminal stenosis. There is mild central canal stenosis. C6-C7: The disc does not extend beyond the endplate margin. There is mild left uncovertebral joint os teoarthritis. There is mild bilateral facet joint osteoarthritis. There is no neural foraminal stenos is. There is no central canal stenosis. C7-T1: Small left subarticular zone disc protrusion. There is no uncovertebral joint osteoarthritis. There is moderate bilateral facet joint osteoarthritis. There is mild left neural foraminal stenosis. There is no central canal stenosis. IMPRESSION: 1. Mild cervical spondylosis. Reviewed, dictated and finalized at location A. ANGIOGRAPHY
== END ==
PROVIDERS: PCP Registered Nurse
DX: M47.22 Other spondylosis with radiculopathy, cervical region (principal)
CPT/HCPCS: 72141

== ENCOUNTER 2024-03-21 07:03 | Outpatient (CLI) | payer OTHER, SELFPAY ==
--- NOTE | ~2024-03-21 | MR_ITS ---
MRI of the thoracic spine Clinical History: Pain Technique: Axial T2-weighted and gradient images, and sagittal T1-weighted, T2-weighted, and STIR shmuel ges were acquired. Findings: There is no fracture or subluxation of the thoracic spine. Vertebral bodies maintain normal height and alignment. No bone marrow signal reality seen. Intervertebral disc spaces are well preserved throughout the thoracic spine. No disc bulge or herniat ion seen. No spinal canal stenosis or cord compression identified. Neural foramina are well preserved throughout the thoracic spine. No abnormal signal seen in the spinal cord. Paravertebral soft tissues are unremarkable. Impression: No significant abnormality seen. Reviewed, dictated and finalized at location . Impression: No significant abnormality seen.
--- NOTE | ~2024-03-21 | MR_ITS ---
MRI of the lumbar spine Clinical History: Back pain Technique: Axial T2-weighted images, and sagittal T1-weighted, T2-weighted, and T2 fat-sat images wer e acquired. Findings: There is no fracture or subluxation of the lumbar spine. Vertebral bodies maintain normal h eight and alignment. No significant bone marrow signal abnormality seen. At L1-L2, L2-L3, L3-L4, intervertebral discs maintain normal signal and position. No disc bulge or he rniation at these levels. There is minimal facet joint arthropathy levels. No spinal canal stenosis o r neural foraminal narrowing at these levels. At L4-L5, there is mild disc desiccation with minimal disc bulge and moderate facet arthropathy. No c entral canal stenosis or neural foraminal narrowing. At L5-S1, there is mild disc desiccation. No significant disc bulge evident. There is moderate facet arthropathy. No central canal stenosis or neural foraminal narrowing. Paravertebral soft tissues are unremarkable. Impression: Minimal degenerative spondylosis, as above. Reviewed, dictated and finalized at location . Impression: Minimal degenerative spondylosis, as above.
== END 2024-03-21 07:04 ==
DX: M47.816 Spondylosis without myelopathy or radiculopathy, lumbar region (principal); M54.50 Low back pain, unspecified; M54.6 Pain in thoracic spine
CPT/HCPCS: 72146; 72148

== ENCOUNTER 2024-07-19 09:31 | Outpatient (CLI) | payer OTHER, SELFPAY ==
--- NOTE | ~2024-07-19 | MM_ITS ---
EXAMINATION: MM screening naz BI w ivon HISTORY: Screening mammogram TECHNIQUE: Craniocaudal and mediolateral oblique 3-D tomosynthesis images were obtained and synthetic 2-D images were generated. CAD analysis was submitted and interpreted. COMPARISON: 09/20/2020 BREAST PARENCHYMAL COMPOSITION:Not Dense. There are scattered areas of fibroglandular density. FINDINGS: No suspicious mass, calcification, or architectural distortion are identified in either segundo ast to suggest malignancy. There has been no suspicious interval change. IMPRESSION: No mammographic evidence of malignancy. Recommend routine screening mammography in one year. BI-RADS Category 1: Negative Reviewed, dictated and finalized at location . ET INSPECTOR
== END 2024-07-19 09:32 | disposition home or self-care (01) ==
LOC: MICIMG 09:31
PROVIDERS: PCP Registered Nurse; Visit Provider Registered Nurse
DX: Z12.31 Encounter for screening mammogram for malignant neoplasm of breast (principal)
CPT/HCPCS: 77063; 77067

== ENCOUNTER 2025-04-14 00:33 | Day surgery (SDC) | payer OTHER, SELFPAY ==
[2025-04-06 16:57] VITALS: BMI 38.0
--- NOTE | 2025-04-06 17:08 | SUR.PREOP ---
Report to the Outpatient Waiting Room, entrance under the green pavilion located off [facility], at time 6:30a.m. on date 04/14/2025. Planned Procedure Time: 8:30a.m.? Time changes happen often and if your time is changed the preop area will call you the afternoon before. - You and your visitor will be asked to self-screen and do not enter if you have any COVID symptoms. Please call surgeon if you need to reschedule. - A mask is optional within the hospital at this time. Patients may have clear liquids (water, carbonated beverages, clear teas, apple juice) until 3 hours prior to surgery with a maximum of 20 ounces. - No food from midnight until time of surgery and no smoking, or chewing tobacco (or any form of nicotine). No chewing gum, candy or mints. Take only the following medications with a SIP of water on the morning of surgery: pregabalin, acyclovir DO NOT STOP ANY OF YOUR OTHER PRESCRIPTION MEDICATIONS PRIOR TO SURGERY EXCEPT THE FOLLOWING Hold all vitamins and supplements for 3 days per anesthesiologist. Medications to discontinue per physician NONE Date to take last dose N/A Please no make-up, nail urdu, hairspray, perfume, deodorant, or body powder the day of surgery.? No jewelry (including any body piercings) or valuables the day of surgery, leave them at home.? Please take a shower or bath the night before, or the morning of, surgery with an antibacterial soap.? Wear comfortable, loose fitting clothing.? Children are encouraged to wear pajamas. - Jewelry must be removed prior to entering the operating room.? Rings and piercings that are not removed may be cut off. - The hospital will not accept responsibility for valuables.? - Please leave all valuables, including medications, at home the day of surgery. If you are going home after surgery, a licensed regional truck driver must drive you home.? - NO public transportation without another adult if you receive anesthesia. - We recommend that an adult stay with you for 24 hours following discharge. - We also recommend that you do not drive, make important decision, drink alcoholic beverages, or take any drugs that were not prescribed by your health care provider for at least 24 hours after your discharge time. Follow any additional instructions given to you from your surgeon. Telephone instructions given to Mere Torres and asked if any additional questions and then verbalized understanding. Patient advised to call surgeon office or pre surgery nurse liaison [phone] if any additional questions.
[2025-04-14] VITALS (8 sets, daily range): BP systolic 112–161; BP diastolic 67–92; PULSE 58–74; RESP 12–14; TEMP 36.3–36.8; O2SAT 97–99; BMI 37.5
--- OUTSIDE RECORDS SUMMARY | 2025-04-14 00:35 | XMS_ITS | Encounter Summary ---
Author Organization [facility] Address [address] [place] [id number] Care Team Providers Care Stranding Supervisor Name Role Phone Bertha Bro Primary Care Provider [phone] Encounter Details Date Type Department Care Team (Late Contact Info) Description 03/18/2025 Results Follow-Up [facility] [place] [id number] [place] [phone] Zurdo Hernandez DO [address] [place] [address] XR RIBS LT+PA CHEST Social History Tobacco Use Types Packs/Day Years Used Date Smoking Tobacco: Former Cigarettes Q uit: 08/30/2022 Smokeless Tobacco: Never Alcohol Use Standard Drinks/Week Comments Yes 0 (1 standard drink = 0.6 oz pur e alcohol) 2-4 drinks/month PHQ-2 Answer Date Recorded Patient Health Questionnaire-2 Score 0 11/05/2024 Comments No Sex and Gender Information Value Date Recorded Sex Assigned at Female 10/13/2024 8: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 Sex Female 6:12 PM CDT Gender Identity Not on file Sexual Orientation Not on file documented as of this encounter Plan of Treatment Upcoming Encounters Date Type Department Care Team (Late st Contact Info) Description 05/08/2025 8:20 AM CDT Allied Health/Nurse Visit [facility] [address] [place] [phone] Bertha Bro APNP [address] [place] [phone] documented as of this encounter Visit Diagnoses Not on filedocumented in this encounter Additional Health Concerns Assessment Noted Time PHQ-9 Depression Total Score: 0 08/09/20 22 10:57 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
--- OUTSIDE RECORDS SUMMARY | 2025-04-14 00:35 | XMS_ITS | Encounter Summary ---
Author Organization [facility] Address [address] [place] [address] Care Team Providers Care Naval Aircrewman Operator Name Role Phone Bertha Bro Primary Care Provider [phone] Encounter Details Date Type Department Care Team (Late Contact Info) Description 07/10/2023 [employer] Message Enc [facility] Family [facility] - [place] [address] 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 Legal Sex Female 6:12 PM CDT Gender Identity Not on file Sexual Orientation Not on file documented as of this encounter Plan of Treatment Upcoming Encounters Date Type Department Care Team (Late Contact Info) Description 05/08/2025 8:20 AM CDT Allied Health/Nurse Visit [facility] [address] [phone] Bertha Bro APNP [address] [place] [phone] documented as of this encounter Visit Diagnoses Not on filedocumented in this encounter Additional Health Concerns Infection Onset Date Last Indicated Resolved Time COVID-19 Rule Out 07/11/2023 07/11/2023 07/11/2023 2:00 PM CDT COVID-19 Confirmed 07/11/2023 07/11/2023 12:32 AM PRODUCTION SUPPLY EQUIPMENT TENDER COVID-19 Rule Out 02/05/2024 02/05/2024 02/05/2024 11:48 AM CDT COVID-19 Rule Out 08/04/2024 08/04/2024 08/04/2024 1:32 PM PRODUCTION SUPPLY EQUIPMENT TENDER COVID-19 Rule Out 08/22/2024 08/22/2024 08/22/2024 11:51 AM PRODUCTION SUPPLY EQUIPMENT TENDER Assessment Noted Time PHQ-9 Depression Total Score: 0 08/09/20 10:57 AM PRODUCTION SUPPLY EQUIPMENT TENDER documented as of this encounter Care Teams Naval Aircrewman Operator Relationship Specialty Start Date End Date Bertha Bro APNP [address] [place] [phone] PCP - General FAMILY PRACTICE 08/05/18 documented as of this encounter
--- OUTSIDE RECORDS SUMMARY | 2025-04-14 00:35 | XMS_ITS | Clinical Summary ---
Author Organization [facility] Address [address] [place] [address] Care Team Providers Care Miller Helper Name Role Phone Bertha Bro Primary Care Provider [phone] Allergies Active Allergy Reactions Criticality Noted Date Comments Erythromycin Hives,Swelling 03/10/2014 Medications hydroxychloroqui ne 200 MG tablet 2 (two) times daily. 10/05/19 22 Active albuterol sulfate HFA 108 (90 Base) MCG/ACT inhalerIndicatio ns:Wheezing Inhale 2 puffs into the lungs every 6 (six) hours as needed for Wheezing. 18 g 3 02/20/20 24 Active pregabalin (LYRICA) 100 MG capsule Take 1 capsule (100 mg total) by mouth daily. 03/31/20 24 Active tiZANidine (ZANAFLEX) 2 MG tablet 03/31/20 24 Active probiotic (FLORAJEN3) Cap capsule Take 1 capsule by mouth 3 (three) times daily with meals. Active azelastine (ASTELIN) 0.1 % nasal sprayIndications :Dysfunction of right eustachian tube 1 spray by Nasal route 2 (two) times daily as needed for Rhinitis (Use when traveling by plane.). 30 mL 09/17/19 25 Active acyclovir (ZOVIRAX) 400 MG tabletIndication s:Recurrent cold sores Take 1 tablet (400 mg total) by mouth daily. 90 tablet 3 09/17/19 25 Active ibuprofen (MOTRIN) 800 MG tablet TAKE 1 TABLET 2 HOURS BEFORE PROCEDURE. Active HYDROcodone-acet aminophen (NORCO) 10-325 MG tabletIndication s:Acute Pain < 7 Day Supply Take 1 tablet by mouth every 6 (six) hours as needed for Pain. Indications: Acute Pain < 7 Day Supply 28 tablet 03/18/20 25 Active docusate sodium (COLACE) 100 MG capsuleIndicatio ns:Constipation, unspecified constipation type Take 1 capsule (100 mg total) by mouth 2 (two) times daily as needed for Constipation. 30 capsule 03/18/20 25 Active pantoprazole EC (PROTONIX) 40 MG tabletIndication s:Gastroesophage al reflux disease without esophagitis TAKE 1 TABLET BY MOUTH EVERY DAY 90 tablet 1 03/24/20 25 Active pantoprazole EC (PROTONIX) 40 MG tabletIndication s:Gastroesophage al reflux disease without esophagitis TAKE 1 TABLET BY MOUTH EVERY DAY 30 tablet 03/02/20 25 025 Discontinued Active Problems Problem Noted Date Diagnosed Date Cervical radiculopathy 10/13/2024 Dysfunction of right eustachian tube 09/17/2024 Cervical spondylosis 09/17/2024 Rheumatoid arthritis involvi ng multiple sites with positive rheumatoid factor ([facility]) 11/14/2023 Screening for colon cancer 11/28/2022 Overview (11/28/2022): Added automatically from request for surgery [id number] Foraminal stenosis of cervical region 08/22/2021 Radiculopathy, cervical region 07/15/2021 Myelopathy ([facility]) 07/15/2021 Cervicalgia 07/15/2021 Chronic right shoulder pain 06/11/2020 Obstructive sleep apnea 09/25/2019 Osteoporosis 05/05/2019 Neuritis of left median nerve 04/03/2019 Neuritis of left ulnar nerve 03/20/2019 Left wrist tendinitis 03/20/2019 Acute pain of left shoulder 12/16/2018 Arthritis of left acromioclavicular joint 2018 Changes in vision 07/05/2018 Headache, worsening 07/05/2018 Lightheadedness 07/05/2018 Impingement syndrome of right shoulder 8 Pain in right shoulder 04/03/2018 Left knee pain 02/11/2018 Abnormal CBC 12/17/2017 Hematuria 12/14/2017 Deltoid bursitis, right 04/05/2017 Tinea versicolor 11/29/2016 Low back pain 10/31/2016 Right foot pain 06/06/2016 Lipoma of back 03/21/2016 Hyperglycemia 12/09/2015 Hemorrhoids 12/09/2015 Recurrent cold sores 03/23/2015 Paresthesia of right leg 09/02/2014 Gastro-esophageal reflux 06/17/2014 Anxiety 03/10/2014 Resolved Problems Problem Noted Date Diagnosed Date Resolved Date Current every day smoker 06/15/202008/2024 Strain of flexor tendon of wrist 03/20/2019 04/03/2019 BMI 36.0-36.9,adult 07/06/2018 08/05/20 18 Overview (07/31/2018): Transitioned From: BMI 34.0-34.9,adult Need for influenza vaccination 07/05/2018 05/21/2020 Eustachian tube disorder 07/28/2016 Encounter for preventive health examination 03/10/2014 05/21/2020 Encounters Date Type Department Care Team Description 03/26/2025 Scan HEALTH INFO SRVCS Scanned, Doc [facility] 03/18/2025 9:00 AM CDT Office Visit [facility] [address] [phone] Bria Jorgensen, DO Fall (The patient states she fell on the left side chasing kids. The patient states norco does not help. She is alternating with motrin and norco and ice. ) 03/18/2025 Results Follow-Up [facility] [address] [phone] Bria Jorgensen, DO XR RIBS LT+PA CHEST 03/18/2025 Travel 03/18/2025 Telephone [facility] [address] [phone] Bertha Bro, APRAMIREZ Information from Last 3 Months Immunizations Immunization Administration Dates Next Due FLUCELVAX (ccIIV3, TRIVALENT, 0.5mL) 10/17/2024 Fluzone 6 Months+ Quad (0.5 mL Prefilled Syringe) 11/14/2023,07/10/2022,07/12/2021,2018 Hepatitis B(Engerix B Adult) 12/05/2024,11/05/19 25 Influenza Adult (Generic) 07/05/2018 MODERNA COVID-19 (12+) MRNA, LNP-S, PF, 100 MCG/ 0.5 ML DOSE 08/18/2021,11/09/2020,10/12/2020 MODERNA COVID-19 ([employer]ISH[employer] DI[employer] DIES CHEO BENI), MRNA, LNP-S, PF, 50 MCG/ 0.25 ML DOSE 08/10/2021 PFIZER COVID-19 (12+) MRNA, LNP-S, PF, MORIAH-SUCROSE, 30 MCG/0.3 ML (COMIRNATY) 10/17/2024,11/15/2023 PFIZER COVID-19 BIVALENT (12 +) mRNA, LNP-S, PF, 30 MCG/0.3 ML DOSE 07/10/2022 Tdap (Boostrix) 12/29/2020 Tdap (Historical Only-select from magnify glass) 06/16/2019 Family History Medical History Relation Comments Seizures Father COPD Mother Colon polyps Mother Alzheimers Other Mental Health Sister Bipolar Relation Status Comments Father Mother Alive Other Sister Alive Social History Tobacco Use Types Packs/Day Years Used Date Smoking Tobacco: Former Cigarettes Q uit: 08/30/2022 Smokeless Tobacco: Never Tobacco Cessation:Counseling Given: Yes Alcohol Use Standard Drinks/Week Comments Yes 0 (1 standard drink = 0.6 oz pur e alcohol) 2-4 drinks/month PHQ-2 Answer Date Recorded Patient Health Questionnaire-2 Score 0 11/05/2024 Comments No Sex and Gender Information Value Date Recorded Sex Assigned at Female 10/13/2024 8:27 AM [employer] Legal Sex Female 6:12 PM CDT Gender Identity Not on file Sexual Orientation Not on file Last Filed Vital Signs Vital Sign Reading Time Taken Comments Blood Pressure 114/72 03/18/2025 9:29 AM CDT Pulse 73 03/18/2025 9:29 AM CDT Temperature 36.3 C (97.4 F) 03/18/2025 9:29 AM CDT Respiratory Rate 18 03/18/2025 9:29 AM CDT Oxygen Saturation 96% 03/18/2025 9:29 AM CDT Inhaled Oxygen Concentration - - Weight 113.6 kg (250 lb 6.4 oz) 03/18/2025 9:29 AM CDT Height 172.7 cm (5' 8) 03/18/2025 9:29 AM CDT Body Mass Index 38.07 03/18/2025 9:29 AM CDT Plan of Treatment Upcoming Encounters Date Type Department Care Team (Late st Contact Info) Description 05/08/2025 8:20 AM CDT Allied Health/Nurse Visit [facility] Family & Internal Medicine - [address] [phone] Bertha Bro, YU [address] [place] [phone] Health Maintenance Due Date Last Done Comments Cervical Cancer Screening Pap with HPV Testing (Age 30 to 64) Every 5 Years 2007 COVID-19 Vaccine (7 - Moderna risk season) 2025 10/17/2024, 11/15/2023, 07/10/2022, Additional history exists Hepatitis B Vaccines (3 of 3 - 19+ 3-dose series) 05/05/2025 12/05/2024, 11/05/2024 Annual Physical 11/05/2025 11/05/2024, 0302/2024, 12/29/2020 Mammogram Screening 07/19/2026 07/19/2024, Cervical Cancer Screening Pap Smear (Age 30 to 64) Every 3 Years 10/01/2027 10/01/2024, 07/29/2024 Cervical Cancer Screening with HPV 10/01/2027 DTaP, Tdap and Td Vaccines (3 - Td or Tdap) 12/29/2030 12/29/2020, 06/16/2019 Colorectal Cancer Screening Colonoscopy (10 Years) 12/08/2032 12/08/2022 Hepatitis C Completed 11/05/2024 PHQ-2 (Physician Brinkley) Completed 11/05/2024 Meningococcal B Vaccine Aged Out No l onger eligible based on patient's age to complete this topic Meningococcal Vaccine Aged Out No giovanni maryanne eligible based on patient's age to complete this topic Pneumococcal Vaccine: Pediatrics (0 to 5 Years) and At-Risk Patients (6 to 49 Years) Aged Out No longer eligible based on patient's age to complete this topic RSV Immunizations Under 20 Months Aged Out No longer eligible based on patient's age to complete this topic Procedures Procedure Name Priority Date/Time Associated Diagnosis Comments XR RIBS LT+PA CHEST STAT 03/18/2025 1 0:16 AM CDT Rib pain HEPATITIS C ANTIBODY Routine 11/05/2024 1:20 PM [employer] Need for hepatitis C screening test MAMMOGRAM GENERIC (SCAN ORDER) 07/19/2024 from Last 3 Months or Most Recently Relevant to Health Maintenance Results * XR RIBS LT+PA CHEST (03/18/2025 10:16 AM CDT) Anatomical Region Laterality Modality Chest Radiographic Sonja ging 03/18/2025 10:1 8 AM CDT Impressions 03/18/2025 10:18 AM CDT IMPRESSION: No acute findings Ordered By: BRIA JORGENSEN Interpreted By: Troy Lopes MD, 03/18/2025 10:18 AM Narrative 03/18/2025 10:18 AM CDT [facility] [place] [address] SINGLE VIEW OF THE CHEST AND 3 VIEWS OF THE LEFT RIBS History: Pain COMPARISON: None CHEST: A single upright view of the chest demonstrates The cardiac silhouette and mediastinal contours to be within normal limits. The pulmonary vessels appear normal. The lungs are clear. No areas of consolidation are seen and no pleural fluid is present. RIBS: 3 images of the left ribs demonstrate the bony elements to be intact. There is no evidence of fracture. No pleural thickening is seen. The surrounding soft tissues appear normal. Procedure Note Troy Lopes MD - 03/18/2025 [facility] [address] [address] SINGLE VIEW OF THE CHEST AND 3 VIEWS OF THE LEFT RIBS History: Pain COMPARISON: None CHEST: A single upright view of the chest demonstrates The cardiacsilhouette and mediastinal contours to be within normal limits. Thepulmonary vessels appear normal. The lungs are clear. No areas ofconsolidation are seen and no pleural fluid is present. RIBS: 3 images of the left ribs demonstrate the bony elements to beintact. There is no evidence of fracture. No pleural thickening is seen.The surrounding soft tissues appear normal. IMPRESSION: No acute findings Ordered By: BRIA JORGENSEN Interpreted By: Troy Lopes MD, 03/18/2025 10:18 AM Bria Jorgensen DO GENERAL IMAGING Final Re sult * HEPATITIS C AB ([facility] ONLY) (11/05/2024 1:20 PM [employer]) HEPATITIS C AB NON-REACTI VE NON-REACT DAR 11/05/2024 7:50 PM [employer] [facility] Comment: ANTIBODIES TO HCV NOT DETECTED. DOES NOT EXCLUDE THE POSSIBILITY OF EXPOSURE TO HCV. 11/05/2024 1:20 PM [employer] [facility] Final Resul t [facility] [address] [place] [address], [id number] * MAMMOGRAM GENERIC (SCAN ORDER) (07/19/2024) Anatomical Region Laterality Modality Other 07/19/2024 Doc [facility] Scanned SCANNING Final Resu lt from Last 3 Months or Most Recently Relevant to Health Maintenance Insurance [employer] Care Teams Miller Helper Relationship Specialty Start Date End Date Bertha Bro APNP [address] [place] [phone] PCP - General FAMILY PRACTICE 08/05/18
[2025-04-14] MEDS: LACTATED RINGERS 1,000 ML 30 ML IV CONT ×2 (07:10→09:41)
[2025-04-14] MEDS: ACETAMINOPHEN 500 MG TABLET 1000 MG PO (07:27)
[2025-04-14] MEDS: KETOROLAC 15 MG/ML VIAL (*BKC) IV PUSH (07:27)
--- NOTE | 2025-04-14 07:43 | P.PNAN_ITS ---
Anes - Initial Pre Proc Eval Procedure: Operation Date: 04/14/25 08:30 Proposed Procedures p Hysteroscopy with Krystin Endometrial Ablation, Laparoscopic Left Ovarian Cystectomy, Laparoscopic Bilateral Salpingo-oophorectomy - Sohail Little MD Date/Time: 04/14/25 07:43 Surgeon: Sohail Little MD Pre Op Diagnosis: Ovarian Mass, Cyst Lt Ovary, Menorrhagia Patient Data Age: 50 Gender: F Height: 1.73 m Weight: 111.8 kg Last Vital Signs Temp 36.3 C L 04/14/25 06:50 Pulse 72 04/14/25 06:50 Resp 14 04/14/25 06:50 BP 131/78 04/14/25 06:50 Pulse Ox 97 04/14/25 06:50 Allergies Allergy/AdvReac Type Severity Reaction Status Date / Time erythromycin base Allergy Unknown Hives Verified 04/14/25 07:21 Home Medications ?Medication ?Instructions ?Recorded ?Confirmed ?Type pantoprazole 40 mg tablet,delayed 40 mg PO QAM 04/01/21 04/06/25 History release pregabalin 150 mg capsule 150 mg PO BID 04/01/21 04/14/25 History hydroxychloroquine 200 mg tablet 200 mg PO BID 08/01/22 04/06/25 History acyclovir 400 mg tablet 400 mg PO DAILY 04/06/25 04/14/25 History tizanidine 2 mg tablet 2 mg PO HS PRN muscle spasticity 04/06/25 04/06/25 History Patient hx anesthesia problems: none Family hx anesthesia problems: none Results Review: All pre-operative results and documents have been reviewed as part of the pre- operative evaluation. [facility] Past Medical History Medical History Obstructive sleep apnea on CPAP Chronic back pain Rheumatoid arthritis Hypertension Chronic GERD Surgical History Surgical History No history of previous surgery Family History Family History Mother Family history of chronic obstructive pulmonary disease Other Family history of Alzheimer's disease Social History Social History Social History: Surrogate medical decision maker: Dana Juarez, spouse. Code status: Full code. Smoking packs per day: 0.5 Smoking cigarettes per day: 10.0 Years smoked: 30 Smoking pack-years: 15.00 Smoking status: Current every day smoker Tobacco type: cigarettes Alcohol intake: current Drinks per week: 4 Alcohol use details: Socially Substance use: never Lack of Transportation: No Lack of Food: Never True Current Housing: I Have Housing Concerned About Future Housing: No Difficulty Paying Gas/Electric Bills: No Difficulty Paying for Meds: No Currently Unemployed: No Education: Associate Degree Difficulty w/ Childcare or Family Care: No Living arrangements: with family Additional living arrangements comments: The patient lives with her and their fur children in [place]. 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 Spiritual care concerns: No Anes - Eval Final PreProcedure Day of Procedure 04/14/25 07:43 Patient weight: obese Heart: regular rate and rhythm Lungs: decreased breath sounds Airway: Mallampati scale class III Neurological: alert and oriented Last oral intake: >/= 8 hours ASA classification: III Emergent: no Anesthetic plan: proceed Anesthesia type and monitoring: general ETT and standard monitoring Results Review: All pre-operative results and documents have been reviewed as part of the pre- operative evaluation. Informed Consent: The patient's anesthetic plan and its attendant risks and benefits were discussed with the patient/family/POA. Questions were solicited and answers provided to the satisfaction of the patient/family/POA.
--- NOTE | 2025-04-14 08:18 | PM.IMHP ---
H&P: HPI History of Present Illness Date/Time: 04/14/25 08:18 Chief Complaint: Heavy vaginal bleeding Narrative: This patient is a 50 year severe menorrhagia, right ovarian fibroma, and a left ovarian cyst. We have agreed to perform hysteroscopy with endometrial ablation, right oophorectomy and left ovarian cystectomy. She understands risks, benefits, and alternatives. She has completed the informed consent process and is ready to proceed. The patient understands the details of the procedure. The procedure has been explained in detail. She understands the risks. She understands that injuries may occur that result in hospitalization, more surgery, and severe illness. She understands risk of hemorrhage and infection. She denies any chest pain or shortness of breath. She denies any nausea, vomiting, fever, chills. Review of Systems Review of Systems: All systems reviewed & are unremarkable except as noted in HPI and below Constitutional: Constitutional: Denies chills, Denies fatigue, Denies fever(s) and Denies weakness Eyes: Eyes: Denies blurry vision, Denies change in vision, Denies loss of peripheral vision, Denies loss of vision, Denies other visual disturbances and Denies eye pain ENT: Denies vertigo, Denies dizziness, Denies hearing loss, Denies mouth pain, Denies nasal obstruction, Denies neck mass and Denies neck pain Cardiovascular: Cardiovascular: Denies chest pain, Denies diaphoresis, Denies syncope, Denies leg edema and Denies dyspnea Respiratory: Respiratory: Denies chest congestion, Denies cough, Denies hemoptysis, Denies dyspnea and Denies wheezing Gastrointestinal: Gastrointestinal: Denies abdominal pain, Denies constipation, Denies diarrhea, Denies nausea and Denies vomiting Genitourinary: Genitourinary: Denies hematuria, Denies change in libido, Denies nocturia, Denies genital lesions, Denies flank pain and Denies urinary urgency Musculoskeletal: Musculoskeletal: Denies abnormal gait, Denies back pain, Denies myalgias, Denies arthralgias, Denies joint swelling, Denies muscle weakness and Denies neck pain Integumentary/Breasts: Skin/Breast: Denies swelling, Denies breast pain, Denies breast mass, Denies dry skin, Denies nipple discharge, Denies unusual bruising and Denies jaundice Neurologic: Denies Neuro-related abnormal movements, Denies Abnormal speech present, Denies abnormal gait, Denies behavioral changes, Denies confusion, Denies vertigo, Denies dizziness, Denies syncope, Denies loss of vision, Denies memory loss, Denies convulsions and Denies weakness Psychiatric: Psychiatric: Denies abnormal sleep pattern, Denies behavioral changes, Denies change in libido, Denies confusion, Denies depression, Denies anhedonia and Denies memory loss Endocrine: Endocrine: Reports no additional endocrine complaints, Denies change in libido and Denies fatigue Hematologic/Lymphatic: Hematologic/Lymphatic: Reports no additional hematologic/lymphatic complaints Allergic/Immunologic: Allergic/Immunologic: Reports no additional allergic/immunologic complaints and Denies wheezing PMFSH Past Medical History Medical History Obstructive sleep apnea on CPAP Chronic back pain Rheumatoid arthritis Hypertension Chronic GERD Surgical History Surgical History No history of previous surgery Family History Family History Mother Family history of chronic obstructive pulmonary disease Other Family history of Alzheimer's disease Social History Social History Social History: Surrogate medical decision maker: Dana Juarez, spouse. Code status: Full code. Smoking packs per day: 0.5 Smoking cigarettes per day: 10.0 Years smoked: 30 Smoking pack-years: 15.00 Smoking status: Current every day smoker Tobacco type: cigarettes Alcohol intake: current Drinks per week: 4 Alcohol use details: Socially Substance use: never Lack of Transportation: No Lack of Food: Never True Current Housing: I Have Housing Concerned About Future Housing: No Difficulty Paying Gas/Electric Bills: No Difficulty Paying for Meds: No Currently Unemployed: No Education: Associate Degree Difficulty w/ Childcare or Family Care: No Living arrangements: with family Additional living arrangements comments: The patient lives with her and their fur children in [place]. 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 Spiritual care concerns: No Meds Home Medications and Allergies Home Medications ?Medication ?Instructions ?Recorded ?Confirmed ?Type pantoprazole 40 mg tablet,delayed 40 mg PO QAM 04/01/21 04/06/25 History release pregabalin 150 mg capsule 150 mg PO BID 04/01/21 04/14/25 History hydroxychloroquine 200 mg tablet 200 mg PO BID 08/01/22 04/06/25 History acyclovir 400 mg tablet 400 mg PO DAILY 04/06/25 04/14/25 History tizanidine 2 mg tablet 2 mg PO HS PRN muscle spasticity 04/06/25 04/06/25 History Allergies Allergy/AdvReac Type Severity Reaction Status Date / Time erythromycin base Allergy Unknown Hives Verified 04/14/25 07:21 Vital Signs Vital Signs - 24 hr 04/14/25 06:50 Temperature 97.3 F L Pulse Rate 72 Respiratory Rate 14 Blood Pressure 131/78 Pulse Oximetry 97 Exam Const: General: cooperative, healthy appearing, comfortable and no acute distress Orientation/consciousness: oriented to person, oriented to place and oriented to time HENMT: Head: normal to inspection Ears: external ears normal Face/Nose/Sinus: Normal external nose present and normal facial exam Face and sinus: normal facial exam Eyes: General: appearance normal, both eyes and all related structures Neck: Neck: normal visual inspection, trachea midline and supple Resp: Auscultation: clear to auscultation bilaterally, no crackles, no rales, no rhonchi and no wheezes Cardio: Rate: regular rate Rhythm: regular rhythm Heart sounds: no click, no murmurs and no rubs GI: GI Palp: No abdominal tenderness, No Soft to palpation, No Tenderness to palpation present (GI) and No Palpable mass present Auscultation: normal bowel sounds Skin: General skin exam: normal color and no rashes or lesions noted Neuro: General: oriented to person, oriented to place and oriented to time Extrem: General: normal to inspection, no joint enlargement, no clubbing, cyanosis or edema, no pedal edema and no calf tenderness Psych: Appearance: grossly normal Mental Status: mental status grossly normal Speech and movement: Normal speech and movement present Assessment and Plan Assessment and plan (1) Ovarian cyst: Code(s): N83.209 - Unspecified ovarian cyst, unspecified side Status: Acute (2) Fibroma of ovary: Code(s): D27.9 - Benign neoplasm of unspecified ovary Status: Acute (3) Menorrhagia: Code(s): N92.0 - Excessive and frequent menstruation with regular cycle Status: Acute Plan This patient is a 50 year severe menorrhagia, right ovarian fibroma, and a left ovarian cyst. We have agreed to perform hysteroscopy with endometrial ablation, right oophorectomy and left ovarian cystectomy. She understands risks, benefits, and alternatives. She has completed the informed consent process and is ready to proceed.
--- NOTE | 2025-04-14 08:20 | WPDHPUPDATE1 ---
History and Physical Update Update Date/Time: 04/14/25 08:20 History and Physical has been reviewed, including an updated exam of the patient. There are NO changes in the patient's condition. Risks, benefits, and alternatives have been discussed and questions answered. Patient agrees to proceed with procedure.
[2025-04-14 08:32] LABS: BEDSIDEPREGUCG Negative (Negative)
--- NOTE | 2025-04-14 09:07 | S_PTH ---
PATIENT: Mere Torres LOC: [facility] U#:[id number] AGE/SX: 50/F ROOM: RE04/14/[address]: Sohail Little MD : 1975 BED: DIS: 04/14/2025 SPEC #: [id number] RECD: 04/14/25 11:12 STATUS: ALIRIO REQ #: [id number] DAX: 04/14/25 09:[address]: Sohail Little DEPT: [facility] Surgical RECD BY: Jerry Kerr ENTERED: 04/14/25 11:13 SP TYPE: Surgical OTHR DR: Bertha Bro, ELEMENTARY SCIENCE TEACHER Tissues: A - Ovary B - Endometrial Curettings Procedures: Hematoxylin and Eosin Stain Gross and Microscopic Level 4
[2025-04-14] MEDS: fentaNYL CITRATE INJ (*CRX) 100 MCG/2 ML VIAL 25 MCG IV PUSH ×6 (09:50→10:10)
--- NOTE | 2025-04-14 10:00 | P.OP_ITS ---
Procedure Note - Detailed Date of Procedure 04/14/25 Pre-op Diagnosis Right Ovarian Mass, Cyst Lt Ovary, Menorrhagia Post-op Diagnosis Same Procedure Performed Laparoscopic bilateral salpingectomy, right oophorectomy, left ovarian cystec daysi. Endometrial ablation with hysteroscopy D&C Surgeon Sohail Little MD Anesthesia General Indications Unwanted fertility Findings Cystic right ovary, cystic left ovary. Normal-appearing uterus and fallopian tubes. Normal vulva, vagina, cervix. Normal appearing endometrial cavity. Description of Procedure The patient was taken the operating room. She was prepped and draped in the dorsal lithotomy position after induction of general anesthesia. A 5 mm skin incision was made in the left upper quadrant of the abdominal skin. A 5 mm trocar was inserted the intra-abdominal cavity under direct visualization of the scope. Pneumoperitoneum was achieved. A 5 mm trocar was inserted in the left lower quadrant identical fashion. A 5 mm infraumbilical trocar was inserted in identical fashion as well. The bilateral fallopian tubes were removed. This was done by using a LigaSure cautery. The mesosalpinx adjacent to the tube was cauterized transected with LigaSure. This was initiated in the area the ovary and in a stepwise fashion moved medially to the area of the cornu of the uterus. Once there the fallopian tube was cauterized and transected. This was done in identical fashion on each side. The fallopian tubes were taken out through the left lower quadrant trocar site. The right ovary was removed. The infundibulopelvic ligament was cauterized and transected. The paraovarian tissue was cauterized and transected. The ovaries placed in endobag and taken out through the left lower quadrant trocar site. Ovarian cyst was lysed and resected on the left ovary as well. The stone was sharp and blunt dissection. Using cautery. The pneumoperitoneum was reduced. The trocars removed. The skin was closed with subcuticular 4 Monocryl and covered with Dermabond. Endometrial ablation, hysteroscopy D&C- A speculum was placed in the vagina. Cervix grasped with a tenaculum. The cervix was dilated to about 1 cm. The hysteroscope was inserted. The above findings were noted. Endometrial curettage was performed with a medium-size curette. All surfaces of the endometrium were affected by the curettage. The specimens were collected and s ent to pathology. Measurements were taken of the uterus and cervix. The uterine length was then entered into the hand piece of the Krystin device. The device was inserted into the intrauterine cavity. The array of the device was expanded. The balloon cuff was inflated. A good seal was achieved. The energy and safety cycles were initiated and completed. The array was collapsed and the instrument was withdrawn after deflating the balloon cuff. Hysteroscope was reinserted. Above findings were noted. The hysteroscope was removed. The patient tolerated the procedure well. The speculum and tenaculum were removed. She was taken to recovery in stable condition. Sponge lap and needle counts were correct x2. Estimated Blood Loss 5 Drains No Packing No Pathology Yes Complications No immediate complications Condition Stable Disposition PACU
[2025-04-14] MEDS: oxyCODONE HCL (*CRX) 5 MG TAB IR PO (10:59)
== END 2025-04-14 11:17 | disposition home or self-care (01) ==
PROVIDERS: PCP Registered Nurse; Visit Provider Obstetrics & Gynecology
PROC: 0UDB8ZZ Extraction of Endometrium, Via Natural or Artificial Opening Endoscopic (ICD-10-PCS; CPT 58558; principal; 2025-04-14 08:30)
DX: N83.11 Corpus luteum cyst of right ovary (principal); N83.202 Unspecified ovarian cyst, left side; N83.8 Other noninflammatory disorders of ovary, fallopian tube and broad ligament; N92.0 Excessive and frequent menstruation with regular cycle; F17.210 Nicotine dependence, cigarettes, uncomplicated; E66.9 Obesity, unspecified; Z68.37 Body mass index [BMI] 37.0-37.9, adult
CPT/HCPCS: 58661; 58563; 88305; A9270; J0330; J1100; J1885; J2003; J2250; J2405; J2704; J3010; J7120